=== PATIENT | female | born 1950 | race Caucasian/White ===

== ENCOUNTER 2016-12-26 16:27 | Outpatient (CLI) | payer OTHER | END 2016-12-26 16:28 | disposition home or self-care (01) | DX: S52.592A Other fractures of lower end of left radius, initial encounter for closed fracture (principal); M25.532 Pain in left wrist ==

== ENCOUNTER 2016-12-27 13:59 | Outpatient (CLI) | payer OTHER | END 2016-12-27 14:00 | disposition home or self-care (01) | DX: M25.531 Pain in right wrist (principal) ==

== ENCOUNTER 2017-03-25 11:00 | Outpatient (CLI) | payer OTHER | END 2017-03-25 11:01 | disposition home or self-care (01) | DX: N63 Unspecified lump in breast (principal) ==

== ENCOUNTER 2017-12-05 10:42 | Emergency (ER) | payer MEDICARE, OTHER ==
--- NOTE | 2017-12-05 12:41 | ED Physician Documentation ---
PD HPI FOCAL NEURO - Stated complaint Stated Complaint: NECK SPASM - Chief complaint Chief Complaint: General - History obtained from History obtained from: Patient - History of Present Illness Timing - onset: Today Timing - duration: Hours Timing - details: Abrupt onset, Intermittant (she has been feeling some twinges of pain and stiffness left anterolateral neck. Had seen her Provider and was to get U/S next Friday. Awoke today with feeling of some small lump in her throat , and left arm feeling numb. Here for eval) Review of Systems Constitutional: denies: Fever, Chills Eyes: denies: Loss of vision, Decreased vision, Photophobia Ears: denies: Loss of hearing, Ear pain, Drainage/discharge, Tinnitus/ringing Nose: denies: Rhinorrhea / runny nose, Congestion Throat: denies: Sore throat Cardiac: denies: Chest pain / pressure, Palpitations Respiratory: denies: Dyspnea, Cough, Wheezing GI: reports: Nausea, Vomiting, Constipation, Diarrhea. denies: Abdominal Pain : denies: Dysuria, Frequency PD PAST MEDICAL HISTORY - Past Medical History Past Medical History: Yes Neuro: Headache/migraine - Past Surgical History Past Surgical History: No - Present Medications Home Medications: Ambulatory Orders Medication Instructions Recorded Confirmed Methocarbamol [Robaxin] 500 mg PO Q6H PRN #20 tablet 12/05/17 Naproxen 375 mg PO BID #20 tablet 12/05/17 Verapamil ER [Calan SA] DAILY 12/05/17 - Allergies Allergies/Adverse Reactions: Allergies Allergy/AdvReac Type Severity Reaction Status Date / Time No Known Drug Allergies Allergy Verified 12/05/17 11:09 - Social History Does the pt smoke?: No Smoking Status: Never smoker Does the pt drink ETOH?: No Does the pt have substance abuse?: No - Immunizations Immunizations are current?: Yes - POLST Patient has POLST: No PD ED PE NORMAL - Vitals Vital signs reviewed: Yes - General General: Alert and oriented X 3, No acute distress, Well developed/nourished - HEENT HEENT: Atraumatic, Ears normal - Neck Neck: Supple, no meningeal sign - Cardiac Cardiac: RRR, No murmur - Respiratory Respiratory: Clear bilaterally Results - Vitals Vitals: Vital Signs - 24 hr 12/05/17 12/05/17 11:09 15:43 Temperature 36.5 C Heart Rate 79 77 Respiratory 20 16 Rate Blood Pressure 138/67 H 124/65 O2 Saturation 100 97 Oxygen O2 Source Room air - Labs Labs: Laboratory Tests 12/05/17 12/05/17 12/05/17 13:22 13:22 13:22 WBC 11.0 H RBC 4.53 Hgb 13.3 Hct 39.5 MCV 87.2 MCH 29.4 MCHC 33.8 RDW 15.4 H Plt Count 303 MPV 7.0 L Neut # 8.9 H Lymph # 1.2 L [place] # 0.8 Eos # 0.0 Baso # 0.1 Absolute Nucleated RBC 0.00 Nucleated RBC % 0.0 ESR 9 Sodium 138 Potassium 3.7 Chloride 101 Carbon Dioxide 24 Anion Gap 13.0 BUN 13 Creatinine 0.7 Estimated GFR (MDRD) 84 L Glucose 94 Calcium 9.1 Total Bilirubin 0.6 AST 21 ALT 19 Alkaline Phosphatase 55 Total Protein 6.3 L Albumin 4.1 Globulin 2.2 Albumin/Globulin Ratio 1.9 Lipase 26 - Rads (name of study) neck and brain angios Radiology: Prelim report reviewed PD MEDICAL DECISION MAKING - ED course Complexity details: reviewed results, considered differential, d/w patient Departure - Departure Disposition: 01 Home, Self Care Clinical Impression: Muscle spasms of neck, Weakness of left arm Condition: Stable Record reviewed to determine appropriate education?: Yes Instructions: ED Spasm Neck No Injury, ED Weakness [facility]O Follow-Up: Beckie Morrison ARNP [Primary Care Provider] - Prescriptions: Methocarbamol [Robaxin] 500 mg PO Q6H PRN #20 tablet PRN Reason: Spasms Naproxen 375 mg PO BID #20 tablet Comments: Drink lots of fluids. Heat or warm towels to the neck area to reduce spasming. He can use naproxen or ibuprofen twice daily for the next week. Add Robaxin muscle relaxant if needed. I presume the weakness feeling you had of the left arm was from muscle spasms at the neck. It does not appear to be vascular in the neck or head (no dissections, aneurysms, leakage, stroke). Follow-up with your primary care in about a week, call for an appointment. Discharge Date/Time: 12/05/17 15:46
[2017-12-05] MEDS ORDERED: SODIUM CHLORIDE 0.9% 1,000 ML IV ONE (13:08)
[2017-12-05] MEDS ORDERED: IOPAMIDOL-300 100 ML VIAL ONE (13:19)
[2017-12-05 13:31] LABS: BASOPHILS # (AUTO) 0.1 10^3/uL (0.0-0.1); BASOPHILS % (AUTO) 0.6 %; EOSINOPHILS % (AUTO) 0.1 %; HGB - HEMOGLOBIN 13.3 g/dL (12.0-16.0); LYMPHOCYTES # (AUTO) 1.2 10^3/uL (1.5-3.5); LYMPHOCYTES % (AUTO) 10.9 %; MEAN CORPUSCULAR HEMOGLOBIN 29.4 pg (27.0-31.0); MEAN CORPUSCULAR HGB CONC 33.8 g/dL (32.0-36.0); MEAN CORPUSCULAR VOLUME 87.2 fL (81.0-99.0); MONOCYTES # (AUTO) 0.8 10^3/uL (0.0-1.0); MONOCYTES % (AUTO) 7.4 %; NEUTROPHILS # (AUTO) 8.9 10^3/uL (1.5-6.6); PLT - PLATELET COUNT 303 10^3/uL (130-450); RED BLOOD COUNT 4.53 10^6/uL (4.20-5.40); RED CELL DISTRIBUTION WIDTH 15.4 % (12.0-15.0)
[2017-12-05 13:44] LABS: ALBUMIN 4.1 g/dL (3.2-5.5); ALBUMIN/GLOBULIN RATIO 1.9 (1.0-2.2); BILIRUBIN,TOTAL 0.6 mg/dL (0.2-1.0); CALCIUM 9.1 mg/dL (8.5-10.3); CREATININE 0.7 mg/dL (0.4-1.0); TOTAL PROTEIN 6.3 g/dL (6.7-8.2)
[2017-12-05] MEDS ORDERED: IOPAMIDOL-300 100 ML VIAL IVP ONE ×2 (14:31→14:43)
--- NOTE | 2017-12-05 15:00 | CT Report ---
EXAM: CT ANGIOGRAM HEAD AND NECK. CT SCAN OF THE HEAD WITHOUT AND WITH CONTRAST. EXAM DATE: 12/05/2017 02:31 PM CLINICAL HISTORY: Left arm weakness and neck pain. Also with lump on neck. COMPARISON: None. TECHNIQUE: - CT Scan Head: Using a multidetector scanner, axial images were acquired from the foramen magnum to the skull vertex prior to and following contrast administration. - CT Angiogram: Using a multidetector scanner, high-resolution axial images were acquired from the th oracic inlet through vertex following rapid infusion of intravenous contrast. Reformats: Multiplanar MIP reformats were reconstructed. Nascet criteria used for stenosis measurement. IV Contrast: 80 cc Isovue 300. In accordance with CT protocol optimization, one or more of the following dose reduction techniques w ere utilized for this exam: automated exposure control, adjustment of mA and/or KV based on patient s ize, or use of iterative reconstructive technique. FINDINGS: Non Contrast Head: There is no mass, mass effect, midline shift or abnormal extraaxial fluid collection. Size and confi guration of the ventricles appear normal. There is no intracranial hemorrhage. Mcdonnell white matter differentiation is maintained. Brain stem and cerebellum appear unremarkable. Calvarium and skull base appear intact and normal. Orbits and extracranial soft tissue appear unremarkable. Post contrast CT Head: No abnormal enhancement. Mcdonnell white matter differentiation appear preserved. Dural venous sinus and deep cerebral veins appear normal. CTA HEAD: Anterior Circulation: The internal carotid arteries (ICA), middle cerebral arteries (MCA), and anteri or cerebral arteries (DEVANG) are patent bilaterally. The anterior communicating artery (A-COM) appears patent. No aneurysms, stenoses, or anatomic anomalies evident. Posterior Circulation: The superior vertebral artery, basilar, and posterior cerebral arteries (LOGISTICS DIRECTOR) are patent. No aneurysms, stenoses, or anomalies evident. The posterior communicating arteries (P-COM ) are patent bilaterally. CTA NECK: Right Carotid: The common carotid, internal carotid, and external carotid arteries are widely patent. No dissection, significant atherosclerotic plaque, or calcification identified. No significant steno sis by NASCET criteria. Left Carotid: The common carotid, internal carotid, and external carotid arteries are widely patent. No dissection, significant atherosclerotic plaque, or calcification identified. No significant stenos is by NASCET criteria. Vertebrals: The vertebrobasilar system shows no stenosis, dissection, aneurysm, or significant athero sclerotic disease. Visualized Aortic arch and pulmonary artery appear normal. Other: Multilevel degenerative changes of the cervical spine most pronounced at C4-C5, C5-C6 and C6-C 7. There is minimal retrolisthesis of C4 on C5 and anterolisthesis at C7 on T1. IMPRESSION: CT Head: No acute intracranial abnormality. Specifically, no evidence of acute infarct, hemorrhage, o r mass lesion. No abnormal enhancement. Unremarkable CT of the head without and with contrast. CTA Head: Normal CTA of the head. No significant vascular stenosis, dissection, or aneurysm. CT angiogram of the neck: 1. No significant cervical carotid or vertebral artery stenosis. No evidence for dissection. 2. No neck mass, or adenopathy. 3. Multilevel degenerative changes with mild canal narrowing at C5-C6, moderate left foraminal narrow ing at C4-C5 and C5-C6. [facility] Referring Provider Line: [phone] SITE ID: [id number]
[2017-12-05 15:44] VITALS: BP 124/65
== END 2017-12-05 15:46 | disposition home or self-care (01) ==
LOC: ED 10:42
DX: M62.838 Other muscle spasm (principal); M62.81 Muscle weakness (generalized)
CPT/HCPCS: 36415; 70496; 70498; 80053; 83690; 85025; 85651; 93005; 99283; 99284; Q9967

== ENCOUNTER 2019-04-27 10:06 | Outpatient (CLI) | payer MEDICARE, OTHER ==
--- NOTE | 2019-04-28 08:56 | Mammography Report ---
Reason: SCREENING MAMMO Procedure Date: 04/27/2019 Accession Number: [id number] / [id number] Procedure: JUVE - Screening Mammo w/Ha CPT Code: FULL RESULT: EXAM: Screening Mammo w/Ha DATE: 04/27/2019 10:41 AM CLINICAL HISTORY: Screening encounter. Family history of breast cancer in a maternal aunt at the age of 40 and to separate maternal aunts at the age of 60. TECHNIQUE: (B) - Bilateral CC and MLO views were obtained. COMPARISON: 03/25/2017 through 04/11/2011. PARENCHYMAL PATTERN: (D) - The breast(s) demonstrate(s) heterogeneously dense fibroglandular parenchyma. FINDINGS: There are no suspicious masses, calcifications, or areas of distortion. IMPRESSION: Negative examination. BI-RADS category 1. RECOMMENDATION: (ANNUAL) - Recommend routine annual screening mammography. BI-RADS CATEGORY: (1) - Negative. STANDARD QUALIFYING STATEMENTS: 1. This examination was not reviewed with the aid of Computer-Aided Detection (CAD). 2. A negative or benign imaging report should not preclude biopsy if clinically suspicious findings are present. 3. Dense breasts may obscure an underlying neoplasm. 4. This examination was reviewed with the aid of 3D breast imaging (tomosynthesis).
== END 2019-04-27 10:07 | disposition home or self-care (01) ==
LOC: DI 10:06
PROVIDERS: ATTEND Nurse Practitioner Family
DX: Z12.31 Encounter for screening mammogram for malignant neoplasm of breast (principal)
CPT/HCPCS: 77063; 77067

== ENCOUNTER 2019-04-27 10:59 | Outpatient (CLI) | payer MEDICARE, OTHER ==
--- NOTE | 2019-04-28 09:12 | DEXA Report ---
Reason: POSTMENOPAUSAL Procedure Date: 04/27/2019 Accession Number: [id number] / [id number] Procedure: DEX - Dexa Spine and/or Hip CPT Code: FULL RESULT: EXAM: Dexa Spine and/or Hip DATE: 04/27/2019 11:16 AM CLINICAL HISTORY: POSTMENOPAUSAL TECHNIQUE: Dual energy x-ray absorptiometry (DXA) was performed on a Surveypal System. Regions measured are the AP Spine, femoral neck, and if needed forearm. COMPARISON: None. In accordance with the International Society for Clinical Densitometry (ISCD) guidelines, data from previous exams may be reanalyzed using current recommendations and techniques. This is done to allow a more accurate basis for comparison with the current study. FINDINGS: The data for the lumbar spine is as follows: BMD (g/cm/cm) T-SCORE Z-SCORE REGION L1 0.883 -2.1 -0.2 L2 0.939 -2.2 -0.3 L3 1.142 -0.5 1.4 L4 1.067 -1.1 0.8 TOTAL 1.011 -1.4 0.5 NOTE: All evaluable vertebrae are used for classification The data for the hip is as follows: BMD (g/cm/cm) T-SCORE Z-SCORE REGION Neck 0.829 -1.5 0.2 TOTAL 0.900 -0.9 0.6 NOTE: The femoral neck or total proximal femur, whichever is lowest, is used for classification. IMPRESSION: THE WHO CLASSIFICATION BASED ON THE INTERNATIONAL REFERENCE STANDARD IS OSTEOPENIA. THE FRACTURE RISK IS INCREASED. RECOMMENDATION: Patients with diagnosis of osteoporosis or osteopenia should have regular bone mineral density assessment. For those eligible for Medicare, routine testing is allowed once every 2 years. Testing frequency can be increased for patients who have rapidly progressing disease or for those who are receiving medical therapy to restore bone mass. COMMENT: World Health Organization (WHO) definitions for osteoporosis and osteopenia: NORMAL BMD: T-score at -1.0 or higher, fracture risk is low OSTEOPENIA BMD: T-score between -1.0 and -2.5, fracture risk is increased. OSTEOPOROSIS BMD: T-score at -2.5 or lower, fracture risk is high. National Osteoporosis Foundation recommends: 1. Obtain adequate dietary calcium (at least 1200 mg per day) and vitamin D (400-800 international units per day). 2. Participate, as appropriate, in regular weightbearing and muscle-strengthening exercise. 3. Avoid tobacco use and reduce alcohol and caffeine intake. 4. For more detailed information see the website at www.NOF.org.
== END 2019-04-27 11:00 | disposition home or self-care (01) ==
LOC: DI 10:59
PROVIDERS: ATTEND Nurse Practitioner Family
DX: M85.89 Other specified disorders of bone density and structure, multiple sites (principal); Z78.0 Asymptomatic menopausal state
CPT/HCPCS: 77080

== ENCOUNTER 2021-08-09 10:51 | Outpatient (CLI) | payer MEDICARE, OTHER ==
--- NOTE | 2021-08-13 09:37 | Mammography Report ---
BILATERAL DIGITAL SCREENING MAMMOGRAM 3D/2D WITH EXAGGERATED CC: 08/09/2021 CLINICAL: Family history of breast cancer. Comparison is made to exams dated: 03/25/2017 ultrasound, 04/27/2019 mammogram - [facility], and 09/21/2014 mammogram - [facility]. The tissue of both breasts is heterogeneously dense. This may lower the sensitivity of mammography. No significant masses, calcifications, or other findings are seen in either breast. There has been no significant interval change. IMPRESSION: NEGATIVE There is no mammographic evidence of malignancy. A 1 year screening mammogram is recommended. This exam was interpreted at Station ID: [id number]. NOTE: For mammograms, a report in lay terms will be sent to the patient. Approximately 15% of breast malignancies will not be visualized mammographically. In the management of a palpable breast mass, a negative mammogram must not discourage biopsy of a clinically suspicious lesion. Electronically Signed By: Gilbert Rao M.D. ddesme/robin:08/09/2021 15:30:29 ACR BI-RADS Category 1: Negative 3341F PARENCHYMAL PATTERN: (D) - The breast(s) demonstrate(s) heterogeneously dense fibroglandular jessica gifford. BI-RADS CATEGORY: (1) - 1 RECOMMENDATION: (ANNUAL) - Recommend routine annual screening mammography. [id number] 1 year screening LATERALITY: (B)
== END 2021-08-09 10:52 | disposition home or self-care (01) ==
LOC: DI.S 10:51
PROVIDERS: ATTEND Nurse Practitioner Family
DX: Z12.31 Encounter for screening mammogram for malignant neoplasm of breast (principal); Z80.3 Family history of malignant neoplasm of breast

== ENCOUNTER 2021-11-06 08:18 | Day surgery (SDC) | payer MEDICARE, OTHER ==
[2021-11-06] MEDS ORDERED: LACTATED RINGERS 1,000 ML IV ONE (08:47)
[2021-11-06] MEDS ORDERED: PROPOFOL 500 MG/50 ML 500 MG/50 ML VIAL ONE (09:25)
--- NOTE | 2021-11-06 09:34 | ANESTHESIA ---
Pre-Anesthesia VS, & Labs - Diagnosis positive cologuard - Procedure colonoscopy Vital Signs: Temp Pulse Resp BP Pulse Ox 37.0 C 71 16 149/72 H 100 11/06/21 08:35 11/06/21 08:35 11/06/21 08:35 11/06/21 08:35 11/06/21 08:35 Height: 5 ft Weight (kg): 53 kg Body Mass Index: 22.8 BMI Classification: Healthy weight - NPO >8 hours - Is Patient ?: No Home Medications and Allergies Home Medications: Ambulatory Orders Sertraline [Zoloft] 25 mg PO QPM 10/30/21 estradioL vaginal [Estrace vaginal] 10 mcg VG QPM 10/30/21 Rizatriptan Benzoate [Rizatriptan] 10 mg PO ONCE PRN 11/01/21 Verapamil ER [Calan SA] 100 mg PO DAILY 12/05/17 Sertraline [Zoloft] 25 mg PO QPM 10/30/21 estradioL vaginal [Estrace vaginal] 10 mcg VG QPM 10/30/21 Rizatriptan Benzoate [Rizatriptan] 10 mg PO ONCE PRN 11/01/21 Allergies/Adverse Reactions: Allergies Allergy/AdvReac Type Severity Reaction Status Date / Time No Known Drug Allergies Allergy Verified 12/05/17 11:09 Anes History & Medical History - Anesthetic History Anesthesia Complications: reports: No previous complications Family history of Anesthesia Complications: Denies Family history of Malignant Hyperthermia: Denies - Medical History Cardiovascular: reports: High cholesterol Pulmonary: reports: None Gastrointestinal: reports: None Urinary: reports: None Musculoskeletal: reports: None Endocrine/Autoimmune: reports: None Skin: reports: None Smoking Status: Never smoker - Surgical History General: reports: Colonoscopy Exam General: Alert, Oriented x3, Cooperative Mouth Openin Fingerbreadth Neck Mobility: Normal Mallampati classification: II Thyromental Distance: 4-6 cm Respiratory: Lungs clear Cardiovascular: Regular rate Plan Anesthesia Type: Total IV Consent for Procedure(s) Verified and Reviewed: Yes Code Status: Attempt Resuscitation ASA classification: 2-Mild systemic disease Is this case an emergency?: No
[2021-11-06] MEDS ORDERED: LACTATED RINGERS 250 ML IV ONE ×2 (10:14)
--- NOTE | 2021-11-06 10:27 | ANESTHESIA POST OP EVALUATION ---
Anesthesia Post Eval - Post Anesthesia Eval Vitals: Last Vital Signs Temp 8855 C H 11/06/21 10:14 Pulse 67 11/06/21 10:14 Resp 18 11/06/21 10:14 BP 88/55 L 11/06/21 10:14 Pulse Ox 100 11/06/21 10:14 CV Function Including HR & BP: Stable Pain Control: Satisfactory Nausea & Vomiting: Negative Mental Status: Baseline Respiratory Status: Airway Patent Hydration Status: Satisfactory Anesthesia Complications: None
[2021-11-06 10:42] VITALS: BP 112/71
== END 2021-11-06 08:19 | disposition home or self-care (01) ==
LOC: SDS 08:18
PROVIDERS: ATTEND Surgery
DX: R19.5 Other fecal abnormalities (principal); K64.8 Other hemorrhoids; K64.4 Residual hemorrhoidal skin tags; I12.9 Hypertensive chronic kidney disease with stage 1 through stage 4 chronic kidney disease, or unspecified chronic kidney disease; N18.30 Chronic kidney disease, stage 3 unspecified; F41.9 Anxiety disorder, unspecified
CPT/HCPCS: 45378; J7120

== ENCOUNTER 2022-05-16 08:02 | Outpatient (CLI) | payer MEDICARE ==
[2022-05-16 15:04] LABS: BASOPHILS # (AUTO) 0.1 10^3/uL (0.0-0.1); BASOPHILS % (AUTO) 1.9 %; EOSINOPHILS # (AUTO) 0.2 10^3/uL (0.0-0.7); EOSINOPHILS % (AUTO) 4.4 %; HGB - HEMOGLOBIN 12.6 g/dL (12.0-16.0); LYMPHOCYTES # (AUTO) 2.7 10^3/uL (1.5-3.5); LYMPHOCYTES % (AUTO) 50.5 %; MEAN CORPUSCULAR HEMOGLOBIN 29.6 pg (27.0-31.0); MEAN CORPUSCULAR HGB CONC 32.3 g/dL (32.0-36.0); MEAN CORPUSCULAR VOLUME 91.8 fL (81.0-99.0); MEAN PLATELET VOLUME 9.5 fL (7.9-10.8); MONOCYTES # (AUTO) 0.6 10^3/uL (0.0-1.0); MONOCYTES % (AUTO) 11.2 %; NEUTROPHILS # (AUTO) 1.7 10^3/uL (1.5-6.6); PLT - PLATELET COUNT 344 10^3/uL (130-450); RED BLOOD COUNT 4.25 10^6/uL (4.20-5.40); RED CELL DISTRIBUTION WIDTH 14.4 % (12.0-15.0); WHITE BLOOD COUNT 5.3 x10^3/uL (4.8-10.8)
[2022-05-16 15:30] LABS: ALBUMIN 3.9 g/dL (3.2-5.5); ALBUMIN/GLOBULIN RATIO 1.9 (1.0-2.2); ALKALINE PHOSPHATASE 46 IU/L (42-121); ALT ALANINE AMINOTRANSFERASE 16 IU/L (10-60); AST ASPARTATE AMINOTRANSFERASE 18 IU/L (10-42); BILIRUBIN,TOTAL 0.7 mg/dL (0.2-1.0); BUN - BLOOD UREA NITROGEN 15 mg/dL (6-20); CALCIUM 9.2 mg/dL (8.5-10.3); CARBON DIOXIDE - CO2 29 mmol/L (21-32); CHLORIDE 102 mmol/L (101-111); CHOL/HDL RATIO 3.5 (<4.4); CHOLESTEROL 268 mg/dL; CREATININE 0.9 mg/dL (0.4-1.0); GFR - MDRD 62 (>89); GLUCOSE 88 mg/dL (70-100); HDL CHOLESTEROL 76 mg/dL; LDL CHOLESTEROL,CALCULATED 180 mg/dL; LDL/HDL RATIO 2.4 (<4.4); POTASSIUM 4.1 mmol/L (3.5-5.0); SODIUM 137 mmol/L (135-145); TRIGLYCERIDES 59 mg/dL; VLDL CHOLESTEROL 12 mg/dL
[2022-05-16 15:57] LABS: THYROID STIMULATING HORMONE 2.91 uIU/mL (0.34-5.60)
== END 2022-05-16 08:03 | disposition home or self-care (01) ==
LOC: LAB.S 08:02
PROVIDERS: ATTEND Nurse Practitioner Family
DX: M85.80 Other specified disorders of bone density and structure, unspecified site (principal); E78.5 Hyperlipidemia, unspecified; N93.9 Abnormal uterine and vaginal bleeding, unspecified
CPT/HCPCS: 36415; 80053; 80061; 82306; 83721; 83970; 84443; 85025

== ENCOUNTER 2022-05-17 06:54 | Outpatient (CLI) | payer MEDICARE ==
--- NOTE | 2022-05-17 11:30 | Ultrasound Report ---
PROCEDURE: Pelvic w/Transvaginal INDICATIONS: ABN VAGINAL BLEEDING, OSTEOPENIA TECHNIQUE: Real-time scanning was performed of the pelvic organs, with image documentation. Additional endovagi nal scanning was necessary due to incomplete visualization of the adnexal and endometrial structures by transabdominal scanning. COMPARISON: None. FINDINGS: Uterus: Uterus is anteverted and normal in size at 5.1 x 2 0.5-3.0 cm. The myometrium is heterogene ous. The endometrium measures 3.2 mm in combined thickness. 1.0 x 1.0 x 1.2 cm right fundal subsero taye fibroid. 0.8 x 0.8 x 1.0 cm right fundal subserosal uterine fibroid. Ovaries: Ovaries not visualized and cannot be evaluated. Other: No pathologic free abdominal or pelvic fluid. IMPRESSION: 1. Uterus has a heterogeneous echotexture. Finding is nonspecific but can be related to adenomyomatos is. 2. No endometrial thickening or endometrial mass. 3. Ovaries not visualized Reviewed by: Vicki Yi MD, PhD on 05/17/2022 11:28 AM PDT Approved by: Vicki Yi MD, PhD on 05/17/2022 11:28 AM PDT Station ID: [id number]
== END 2022-05-17 06:55 | disposition home or self-care (01) ==
LOC: DI 06:54
PROVIDERS: ATTEND Nurse Practitioner Family
DX: N93.9 Abnormal uterine and vaginal bleeding, unspecified (principal)

== ENCOUNTER 2022-05-20 14:20 | Outpatient (CLI) | payer MEDICARE ==
--- NOTE | 2022-05-20 16:15 | DEXA Report ---
PROCEDURE: Dexa Spine and/or Hip INDICATIONS: OSTEOPENIA TECHNIQUE: Dual energy x-ray absorptiometry (DXA) was performed on a CarbonFlow System. Regions measur ed are the AP Spine, femoral neck, and if needed forearm. COMPARISON: None. FINDINGS: Lumbar Spine: Bone Mineral Density 1.084 g/cm/cm,T score -0.8 Left Hip: Bone Mineral Density 0.880 g/cm/cm,T score -1.0 Left Femoral Neck: Bone Mineral Density 0.793 g/cm/cm, T score -1.8 (T score greater or equal to -1.0: NORMAL) (T score from -1.1 to -2.4: OSTEOPENIA) (T score less than or equal to -2.5 to: OSTEOPOROSIS) Impression: Osteopenia of the left femoral neck. Patients with diagnosis of osteoporosis or osteopenia should have regular bone mineral density assess ment. For those eligible for Medicare, routine testing is allowed once every 2 years. Testing frequ ency can be increased for patients who have rapidly progressing disease or for those who are receivin g medical therapy to restore bone mass. Reviewed by: Ida Denise MD on 05/20/2022 4:14 PM PDT Approved by: Ida Denise MD on 05/20/2022 4:14 PM PDT Station ID: [id number]
== END 2022-05-20 14:21 | disposition home or self-care (01) ==
LOC: DI 14:20
PROVIDERS: ATTEND Nurse Practitioner Family
DX: M85.88 Other specified disorders of bone density and structure, other site (principal)

== ENCOUNTER 2022-08-26 13:04 | Outpatient (CLI) | payer MEDICARE ==
--- NOTE | 2022-08-27 11:51 | Mammography Report ---
BILATERAL DIGITAL SCREENING MAMMOGRAM 3D/2D WITH EXAGGERATED CC: 08/26/2022 CLINICAL: Routine screening. Family history of breast cancer. Comparison is made to exams dated: 08/09/2021 mammogram and 04/27/2019 mammogram - [facility]. Both breasts are heterogeneously dense, which may obscure small masses (category c / 51-75% glandula r tissue). No significant masses, calcifications, or other findings are seen in either breast. There has been no significant interval change. IMPRESSION: NEGATIVE There is no mammographic evidence of malignancy. A 1 year screening mammogram is recommended. Based on the Tyrer Cuzick model (a risk assessment model) the patients lifetime risk is 7.9% and her 10 year risk is 5.0%. According to the ACR, ACS, and NCCN guidelines, an annual breast MRI exam beatriz g with mammogram is recommended if the patients lifetime risk is 20% or greater. This exam was interpreted at Station ID: [id number]. NOTE: For mammograms, a report in lay terms will be sent to the patient. Approximately 15% of breast malignancies will not be visualized mammographically. In the management of a palpable breast mass, a negative mammogram must not discourage biopsy of a clinically suspicious lesion. Electronically Signed By: Cosme camara/robin:08/26/2022 15:24:03 ACR BI-RADS Category 1: Negative 3341F PARENCHYMAL PATTERN: (D) - The breast(s) demonstrate(s) heterogeneously dense fibroglandular jessica ma. BI-RADS CATEGORY: (1) - 1 RECOMMENDATION: (ANNUAL) - Recommend routine annual screening mammography. [id number] 1 year screening LATERALITY: (B)
== END 2022-08-26 13:05 | disposition home or self-care (01) ==
LOC: DI.S 13:04
PROVIDERS: ATTEND Nurse Practitioner Family
DX: Z12.31 Encounter for screening mammogram for malignant neoplasm of breast (principal); Z80.3 Family history of malignant neoplasm of breast

== ENCOUNTER → 2023-03-10 06:45 | Outpatient (CLI) | payer MEDICARE | END | disposition short-term general hospital (02) | LOC: EMS 03-10 06:44 | DX: R00.2 Palpitations (principal) | CPT/HCPCS: A0425; A0429 ==